=== PATIENT | female | born 1985 | race Caucasian/White ===

== ENCOUNTER 2016-04-30 14:50 | Emergency (ER) | payer OTHER ==
[~2016-04-30] VITALS: Ht 157.4 cm; Wt 81.6 kg
[~2016-04-30 14:50] MED LIST: ALBUTEROL2.5 MG/0.5 INH; AVPAK AZITHROM250 M1 PO; BACTRIM DS 8001 TA1 PO; BENZONATATE100 M1 PO; DUONEB 3 MG/3 ML3 M1 INH; LEVAQUIN750 M1 PO; MIRENA52 MG IU; PREDNICOT20 MG PO; ROBITUSSIN AC 110 ML PO
[2016-04-30] MEDS ORDERED: METFORMIN500 MG PO (15:07)
[2016-04-30] MEDS ORDERED: ATENOLOL50 M1 PO (15:07)
[2016-04-30] MEDS ORDERED: PREDNISONE20 M1 PO (16:01)
[2016-04-30] MEDS ORDERED: TESSALON PERLE100 M1 PO (16:01)
[2016-04-30] MEDS ORDERED: VIBRAMYCIN100 MG PO (16:01)
[2016-06-20] MEDS ORDERED: ZOFRAN ODT4 MG SL (22:05)
== END 2016-04-30 16:06 | disposition home or self-care (01) ==
LOC: ED 14:50
DX: J20.9 Acute bronchitis, unspecified (principal); F17.200 Nicotine dependence, unspecified, uncomplicated; Z88.0 Allergy status to penicillin; Z79.899 Other long term (current) drug therapy

== ENCOUNTER → 2017-06-29 | Outpatient (CLI) | payer OTHER ==
[~2017-06-29] MED LIST changes: +ATENOLOL50 M1 PO; +METFORMIN500 MG PO; +PREDNISONE20 M1 PO; +TESSALON PERLE100 M1 PO; +VIBRAMYCIN100 MG PO; +ZOFRAN ODT4 MG SL
[2017-06-29 15:21] LABS: BASO # 0.1 10*3/uL (0.0-0.1); BASO % 0.6 % (0.0-1.0); EOS # 0.4 10*3/uL (0.0-0.4); EOS % 3.9 % (1.0-4.0); HEMATOCRIT 43.6 % (37.0-47.0); HEMOGLOBIN 14.1 g/dl (12.0-16.0); LYMPH # 3.5 10*3/uL (1.3-4.4); LYMPH % 34.2 % (27.0-41.0); MEAN CELL VOLUME 82.7 fl (81.0-99.0); MEAN CORPUSCULAR HGB 26.8 pg (27.0-31.0); MEAN CORPUSCULAR HGB CONC 32.3 g/dl (33.0-37.0); MEAN PLATELET VOLUME 8.7 fl (9.6-12.3); MONO # 0.8 10*3/uL (0.1-1.0); MONO % 8.2 % (3.0-9.0); NEUT # 5.4 10*3/uL (2.3-7.9); NEUT % 52.6 % (47.0-73.0); PLATELET COUNT AUTOMATED 421 10*3/uL (130-400); RED BLOOD COUNT 5.27 10*6/uL (4.10-5.10); RED CELL DISTRI WIDTH 12.9 % (0-14.5); WHITE BLOOD COUNT 10.2 10*3/uL (4.8-10.8)
[2017-06-29 15:22] LABS: BILIRUBIN NEGATIVE (NEGATIVE); BLOOD NEGATIVE (NEGATIVE); CLARITY CLEAR (CLEAR); COLOR YELLOW (YELLOW); GLUCOSE NEGATIVE (NEGATIVE); KETONE NEGATIVE (NEGATIVE); LEUKO ESTERASE NEGATIVE (NEGATIVE); NITRITE NEGATIVE (NEGATIVE); PH 6.5 (5.0-9.0); UROBILINOGEN 0.2 E.U./dl (0.2-1.0)
[2017-06-29 15:33] LABS: BACTERIA TRACE
[2017-06-29 15:34] LABS: EPITHELIAL CELLS 21-30
[2017-06-29 15:48] LABS: ALBUMIN 3.7 gm/dl (3.1-4.5); ALKALINE PHOSPHATASE 78 U/L (45-117); BUN 8 mg/dl (7-24); CHLORIDE 103 mmol/L (98-107); CHOLESTEROL 201 mg/dL (<200); HDL CHOLESTEROL 40 mg/dl (40-60); LDL CHOLESTEROL 129 mg/dL (9-159); POTASSIUM 3.7 mmol/L (3.5-5.1); SGOT/AST 18 IU/L (3-35); SGPT/ALT 32 U/L (12-78); SODIUM 138 mmol/L (136-145); TOTAL PROTEIN 7.6 gm/dL (6.4-8.2); TRIGLYCERIDES 162 mg/dl (<150); VLDL CHOLESTEROL 32 mg/dL (6-40)
== END | disposition home or self-care (01) ==
LOC: LAB 14:53
PROVIDERS: Nurse Practitioner Family
DX: I10 Essential (primary) hypertension (principal); E11.9 Type 2 diabetes mellitus without complications; R63.5 Abnormal weight gain; R53.83 Other fatigue; E55.9 Vitamin D deficiency, unspecified

== ENCOUNTER 2019-07-12 21:29 | Emergency (ER) | payer OTHER ==
[~2019-07-12] VITALS: Ht 158.7 cm; Wt 79.8 kg
[~2019-07-12 21:29] MED LIST changes: +REGLAN10 M1 PO
[2019-07-12 22:47] LABS: BASO # 0.1 10*3/uL (0.0-0.1); BASO % 0.6 % (0.0-1.0); EOS # 0.9 10*3/uL (0.0-0.4); EOS % 7.1 % (1.0-4.0); HEMATOCRIT 44.1 % (37.0-47.0); HEMOGLOBIN 14.2 g/dl (12.0-16.0); LYMPH # 4.1 10*3/uL (1.3-4.4); LYMPH % 31.9 % (27.0-41.0); MEAN CELL VOLUME 84.8 fl (81.0-99.0); MEAN CORPUSCULAR HGB 27.3 pg (27.0-31.0); MEAN CORPUSCULAR HGB CONC 32.2 g/dl (33.0-37.0); MEAN PLATELET VOLUME 9.3 fl (9.6-12.3); MONO # 1.2 10*3/uL (0.1-1.0); MONO % 9.6 % (3.0-9.0); NEUT # 6.4 10*3/uL (2.3-7.9); NEUT % 50.5 % (47.0-73.0); PLATELET COUNT AUTOMATED 387 10*3/uL (130-400); RED CELL DISTRI WIDTH 13.7 % (0-14.5); WHITE BLOOD COUNT 12.8 10*3/uL (4.8-10.8)
[2019-07-12 23:04] LABS: ALBUMIN 3.5 gm/dl (3.1-4.5); ALKALINE PHOSPHATASE 84 U/L (45-117); BUN 8 mg/dl (7-24); CHLORIDE 107 mmol/L (98-107); CREATININE 0.74 mg/dL (0.55-1.02); LIPASE 100 U/L (73-393); POTASSIUM 3.6 mmol/L (3.5-5.1); SGOT/AST 12 IU/L (3-35); SGPT/ALT 25 U/L (12-78); SODIUM 137 mmol/L (136-145); TOTAL PROTEIN 7.2 gm/dL (6.4-8.2)
[2019-07-12 23:06] LABS: THYROXINE (T4) TOTAL 10.1 ug/dl (4.8-13.9)
[2019-07-12 23:12] LABS: THYROID STIM HORMONE (HS) 1.49 uIU/ml (0.358-4.75)
[2019-07-13 00:22] LABS: BILIRUBIN NEGATIVE (NEGATIVE); CLARITY CLEAR (CLEAR); COLOR YELLOW (YELLOW); GLUCOSE 1+ (NEGATIVE); KETONE NEGATIVE (NEGATIVE)
[2019-07-13 00:23] LABS: BLOOD NEGATIVE (NEGATIVE); LEUKO ESTERASE TRACE (NEGATIVE); NITRITE NEGATIVE (NEGATIVE); UROBILINOGEN 0.2 E.U./dl (0.2-1.0)
[2019-07-13 00:26] LABS: BACTERIA 1+
[2019-07-13] MEDS ORDERED: SEPTDS PO (00:35)
== END 2019-07-13 00:48 | disposition home or self-care (01) ==
LOC: ED 21:29
PROVIDERS: Nurse Practitioner Family
DX: N39.0 Urinary tract infection, site not specified (principal); I10 Essential (primary) hypertension; Z88.0 Allergy status to penicillin; Z79.899 Other long term (current) drug therapy

== ENCOUNTER 2019-07-19 22:37 | Emergency (ER) | payer OTHER ==
[~2019-07-19] VITALS: Ht 160 cm; Wt 78.9 kg
[~2019-07-19 22:37] MED LIST changes: +SEPTDS PO
[2019-07-19] MEDS ORDERED: KETOROLAC10 MG PO (23:47)
[2019-07-19] MEDS ORDERED: CYCLOBENZAPRINE5 M3 PO (23:47)
[2019-07-19] MEDS ORDERED: MEDROL DOSEPAK4 MG PO (23:47)
== END 2019-07-20 00:02 | disposition home or self-care (01) ==
LOC: ED 22:37
DX: S39.012A Strain of muscle, fascia and tendon of lower back, initial encounter (principal); I10 Essential (primary) hypertension; Z88.0 Allergy status to penicillin; Z79.899 Other long term (current) drug therapy; X58.XXXA Exposure to other specified factors, initial encounter; Y93.89 Activity, other specified; Y92.89 Other specified places as the place of occurrence of the external cause; Y99.8 Other external cause status